=== PATIENT | female | born 1965 | race American Indian/Alaskan Native ===

== ENCOUNTER 2017-01-21 11:39 | Emergency (ER) | payer MEDICAID, OTHER, SELFPAY ==
--- NOTE | 2017-01-21 11:48 | EDM.PDOC ---
[id number] Complaint: R KNEE PAIN Time Seen by Provider: 01/21/17 12:20 Source of Information: Reports: Patient History Limitations: Reports: No Limitations - History of Present Illness INITIAL COMMENTS - FREE TEXT/NARRATIVE: 51-year-old female with chronic right knee swelling and pain is in today for pain control. She had surgery several months ago and has had persistent swelling since. She was seen at [facility] one month ago and he attempted to aspirate the knee but she walked out because it was painful. She is refusing any type of injection into the knee at this time. She has no new injury, she is having trouble ambulating. She says she "goes to bed crying"and "wakes up in the morning crying". No redness, warmth to the knee or fever. Severity: Moderate Worsens with: Reports: Other (Weight-bearing), Movement Knee Pain Score (Numeric/FACES): 10 - Related Data Allergies Allergy/AdvReac Type Severity Reaction Status Date / Time codeine phosphate Allergy Vomiting Verified 01/21/17 12:28 [From Tylenol-Codeine #3] naproxen Allergy Swelling Verified 01/21/17 12:28 tramadol Allergy Swelling Verified 01/21/17 12:28 trazodone Allergy Swelling Verified 01/21/17 12:28 Home Meds: Home Meds QUEtiapine Fumarate [Seroquel] 200 mg PO BEDTIME 05/12/13 [History] Acetaminophen [Tylenol] 650 mg PO Q4HR PRN 01/21/17 [History] buPROPion [Wellbutrin XL] 300 mg PO DAILY 01/21/17 [History] busPIRone [Buspar] 10 mg PO BID 01/21/17 [History] Social & Family History - Tobacco Use Smoking Status *Q: Unknown Ever Smoked Years of Tobacco use: 25 Used Tobacco, but Quit: No Second Hand Smoke Exposure: Yes - Alcohol Use Days Per Week of Alcohol Use: 0 - Recreational Drug Use Recreational Drug Use: No Drug Use in Last 12 Months: Yes Recreational Drug Type: Reports: Marijuana/Hashish Recreational Drug Use Frequency: Weekly Recreational Drug Last Use: t-2 Review of Systems - Review of Systems Review Of Systems: See Below Constitutional: Denies: Fever Respiratory: Denies: Shortness of Breath GI/Abdominal: Denies: Nausea, Vomiting Musculoskeletal: Reports: Back Pain, Other (Knee pain) Skin: Denies: Erythema Psychiatric: Reports: Depression, Mood Lability ED EXAM, GENERAL - Physical Exam Exam: See Below Exam Limited By: No Limitations General Appearance: Alert, Mild Distress (Appears uncomfortable, tearful) Respiratory/Chest: No Respiratory Distress Extremities: Other (Exam is otherwise limited to the lower extremities. She has well-healed surgical scars anteriorly both knees. She has diffuse swelling around the right knee which is tender to palpation, no erythema or warmth. Apparently it's been swollen for months.) Course - Vital Signs Last Recorded V/S: Last Vital Signs Temp 98.8 F 01/21/17 12:27 Pulse 93 01/21/17 12:27 Resp 16 01/21/17 12:27 BP 130/77 01/21/17 12:27 Pulse Ox 98 01/21/17 12:27 - Orders/Labs/Meds Meds: Medications Discontinued Medications Generic Name Dose Route Start Last Admin Trade Name Freq PRN Reason Stop Dose Admin Ketorolac Tromethamine 60 mg 01/21/17 13:36 01/21/17 13:50 Toradol IM 01/21/17 13:37 60 mg ONETIME ONE Administration - Re-Assessments/Exams Free Text/Narrative Re-Assessment/Exam: 01/21/17 13:56 Patient was given 60 mg of Toradol IM. She was also supplied with 10 [place] to use for extra pain control over the next 2 days and needs to call her primary provider or orthopedic surgeon early next week. 01/21/17 14:19 Records from [place] were obtained. Her clinical presentation physical exam looked the same back on November 25, 2 months ago as they do now. Interestingly her sedimentation rate and CRP were elevated at that time. Comments were made that she has had several no-shows to infectious disease and orthopedics over the last several months. It was impressed to her the importance of maintaining her appointment next week as no further pain medications will be given from the emergency room here. Departure - Departure Time of Disposition: 14:13 Disposition: Home, Self-Care 01 Condition: good Clinical Impression: Effusion of right knee joint, Chronic pain of right knee - Discharge Information Instructions: Knee Pain Referrals: PCP,None [Primary Care Provider] - Forms: ED Department Discharge Care Plan Goals: Continue using crutches and elevate knee when possible. Triston wrap and should help. Use stronger pain control as prescribed for the next 2-3 days, and call orthopedics next week to see if they can move up your appointment.
[2017-01-21 12:07] VITALS: BP 130/77
[2017-01-21] MEDS ORDERED: Ketorolac 60 MG/2 ML SDV IM ONE (13:36)
== END 2017-01-21 14:13 | disposition home or self-care (01) ==
LOC: JP.ED 11:39
DX: M25.461 Effusion, right knee (principal); M25.561 Pain in right knee; G89.29 Other chronic pain; Z79.899 Other long term (current) drug therapy; Z88.5 Allergy status to narcotic agent; Z88.8 Allergy status to other drugs, medicaments and biological substances
CPT/HCPCS: 96372; 99283; J1885

== ENCOUNTER 2017-05-07 13:56 | Emergency (ER) | payer MEDICAID, OTHER ==
[2017-05-07 14:17] VITALS: BP 133/36
--- NOTE | 2017-05-07 15:01 | EDM.PDOC ---
ED HPI GENERAL MEDICAL PROBLEM - General Chief Complaint: Lower Extremity Injury/Pain Stated Complaint: RT KNEE PAIN Time Seen by Provider: 05/07/17 14:40 Source of Information: Reports: Patient History Limitations: Reports: No Limitations - History of Present Illness INITIAL COMMENTS - FREE TEXT/NARRATIVE: 51-year-old female with chronic recurring significant inflammatory changes in her right knee has undergone several large surgeries and is being rechecked at [facility] on May 17. Over the past 2 days her knee has swollen again but has not reddened. She is planning on going to [place] tomorrow to discuss this with infectious disease and orthopedics and is looking for pain control. A [employer] search shows 3 small prescriptions over the past 4 months. She has no fevers or chills. Quality: Reports: Throbbing Severity: Moderate Worsens with: Reports: Other (Weightbearing), Movement - Related Data Allergies Allergy/AdvReac Type Severity Reaction Status Date / Time naproxen Allergy Swelling Verified 01/21/17 12:28 tramadol Allergy Swelling Verified 01/21/17 12:28 trazodone Allergy Swelling Verified 01/21/17 12:28 codeine phosphate AdvReac Vomiting Verified 01/22/17 09:07 [From Tylenol-Codeine #3] Home Meds: Home Meds QUEtiapine Fumarate [Seroquel] 200 mg PO BEDTIME 05/12/13 [History] Acetaminophen [Tylenol] 650 mg PO Q4HR PRN 01/21/17 [History] buPROPion [Wellbutrin XL] 300 mg PO DAILY 01/21/17 [History] busPIRone [Buspar] 10 mg PO BID 01/21/17 [History] Gabapentin [Neurontin] 05/07/17 [History] Rifampin [Rifampin] 05/07/17 [History] Past Medical History Musculoskeletal History: Reports: Osteoarthritis Neurological History: Reports: Migraines Psychiatric History: Reports: Anxiety, Depression Oncologic (Cancer) History: Reports: Other (See Below) Other Oncologic History: kindney - Past Surgical History HEENT Surgical History: Reports: Tonsillectomy GI Surgical History: Reports: Appendectomy, Cholecystectomy Female Surgical History: Reports: Hysterectomy Musculoskeletal Surgical History: Reports: Knee Replacement Social & Family History - Tobacco Use Smoking Status *Q: Current Every Day Smoker Years of Tobacco use: 40 Packs/Tins Daily: 0.5 Used Tobacco, but Quit: No Second Hand Smoke Exposure: Yes - Caffeine Use Caffeine Use: Reports: Coffee, Soda - Alcohol Use Days Per Week of Alcohol Use: 0 - Recreational Drug Use Recreational Drug Use: No Drug Use in Last 12 Months: Yes Recreational Drug Type: Reports: Marijuana/Hashish Recreational Drug Use Frequency: Weekly Recreational Drug Last Use: t-2 Review of Systems - Review of Systems Review Of Systems: See Below Constitutional: Denies: Fever Respiratory: Denies: Shortness of Breath Cardiovascular: Denies: Chest Pain GI/Abdominal: Denies: Nausea, Vomiting Skin: Denies: Erythema ED EXAM, GENERAL - Physical Exam Exam: See Below Exam Limited By: No Limitations General Appearance: Alert, No Apparent Distress Respiratory/Chest: No Respiratory Distress Extremities: Other (Exam is otherwise limited to the lower extremities. The right knee is diffusely swollen compared to the left but stable compared to last exam. There is no significant effusion palpable, no warmth or redness. The surgical scar is well-healed.) Course - Vital Signs Last Recorded V/S: Last Vital Signs Temp 98.6 F 05/07/17 14:32 Pulse 105 H 05/07/17 14:32 Resp 18 05/07/17 14:32 BP 133/36 L 05/07/17 14:32 Pulse Ox 93 L 05/07/17 14:32 - Re-Assessments/Exams Free Text/Narrative Re-Assessment/Exam: 05/07/17 14:59 I did agree to give her 10 Vicodin for pain control but she needs to contact her physicians in [place] tomorrow for further evaluation. Departure - Departure Time of Disposition: 15:08 Disposition: Home, Self-Care 01 Condition: Fair Clinical Impression: Pain in right knee Qualifiers: Chronicity: chronic Qualified Code(s): M25.561 - Pain in right knee - Discharge Information Instructions: Knee Pain Referrals: Ricky Acharya Sr, MD [Primary Care Provider] - Forms: ED Department Discharge Care Plan Goals: Continue your regular medications and add stronger pain medication if needed over the next 24-48 hours. It is very important to let your physicians know in [place] of your worsening symptoms.
== END 2017-05-07 15:08 | disposition home or self-care (01) ==
LOC: JP.ED 13:56
DX: M25.561 Pain in right knee (principal); F32.9 Major depressive disorder, single episode, unspecified; F17.210 Nicotine dependence, cigarettes, uncomplicated; Z90.49 Acquired absence of other specified parts of digestive tract; Z98.890 Other specified postprocedural states; Z96.659 Presence of unspecified artificial knee joint; Z90.710 Acquired absence of both cervix and uterus; Z79.899 Other long term (current) drug therapy; Z88.5 Allergy status to narcotic agent; Z88.8 Allergy status to other drugs, medicaments and biological substances
CPT/HCPCS: 99283

== ENCOUNTER 2019-02-03 18:10 | Emergency (ER) | payer MEDICAID ==
[2019-02-03 18:43] VITALS: BP 160/89
[2019-02-03] MEDS ORDERED: Ketorolac 60 MG/2 ML SDV IM ONE (18:57)
[2019-02-03] MEDS ORDERED: Acetaminophen/oxyCODONE 325-5 MG Tab PO ONE (19:00)
[2019-02-03] MEDS ORDERED: Baclofen 10 MG Tab PO ONE (19:01)
--- NOTE | 2019-02-03 19:05 | EDM.PDOC ---
ED HPI GENERAL MEDICAL PROBLEM - General Chief Complaint: Back Pain or Injury Stated Complaint: PAIN IN BACK GOING DOWN Time Seen by Provider: 02/03/19 19:02 Source of Information: Reports: Patient History Limitations: Reports: No Limitations - History of Present Illness INITIAL COMMENTS - FREE TEXT/NARRATIVE: PT FELL ABOUT 1 YEAR AGO AND SINCE THAT TIME SHE HAS HAD SEVERE PAIN IN HER LEFT LOWER BACK AND DOWN THE LEFT LEG. sHE HAS TINGLING IN HER FOOT. sHE DID HAVE XRAYS ABOUT 6 MONTHES AGO. sHE WAS TOLD AT THAT [facility] NOTHING WAS WRONG. Onset: Gradual, Other ( tHIS HAS BEEN GOING ON FOR ABOUT 1 YEAR. ) Duration: Hour(s): Location: Reports: Back, Lower Extremity, Left, Radiates to Associated Symptoms: Reports: Other (PT IS HAVING DIFFICULTY WALKING. ) Lower Back Pain Score (Numeric/FACES): 10 - Related Data Allergies Allergy/AdvReac Type Severity Reaction Status Date / Time naproxen Allergy Swelling Verified 01/21/17 12:28 tramadol Allergy Swelling Verified 01/21/17 12:28 trazodone Allergy Swelling Verified 01/21/17 12:28 codeine phosphate AdvReac Vomiting Verified 01/22/17 09:07 [From Tylenol-Codeine #3] Home Meds: Home Meds QUEtiapine Fumarate [Seroquel] 400 mg PO BEDTIME 05/12/13 [History] Acetaminophen [Tylenol] 650 mg PO Q4HR PRN 01/21/17 [History] buPROPion [Wellbutrin XL] 300 mg PO DAILY 01/21/17 [History] busPIRone [Buspar] 15 mg PO QID 01/21/17 [History] Gabapentin [Neurontin] 800 mg PO QID 05/07/17 [History] Past Medical History Musculoskeletal History: Reports: Osteoarthritis Neurological History: Reports: Migraines Psychiatric History: Reports: Anxiety, Depression Oncologic (Cancer) History: Reports: Other (See Below) Other Oncologic History: kindney - Infectious Disease History Infectious Disease History: Reports: Chicken Pox - Past Surgical History HEENT Surgical History: Reports: Tonsillectomy GI Surgical History: Reports: Appendectomy, Cholecystectomy Female Surgical History: Reports: Hysterectomy Musculoskeletal Surgical History: Reports: Knee Replacement Social & Family History - Tobacco Use Smoking Status *Q: Current Every Day Smoker Years of Tobacco use: 20 Packs/Tins Daily: 0.5 - Caffeine Use Caffeine Use: Reports: None - Recreational Drug Use Recreational Drug Use: No ED ROS GENERAL - Review of Systems Review Of Systems: See Below Constitutional: Reports: No Symptoms HEENT: Reports: No Symptoms Respiratory: Reports: No Symptoms Cardiovascular: Reports: No Symptoms Endocrine: Reports: No Symptoms GI/Abdominal: Reports: No Symptoms : Reports: No Symptoms Musculoskeletal: Reports: Other (pain in lower back on the left with pain radiating down the left leg. ) Skin: Reports: No Symptoms Neurological: Reports: Other (pt is crying with the severety of the pain. ) ED EXAM, UPPER BACK/NECK PAIN - Physical Exam Exam: See Below Text/Narrative:: pt arrived with severe low back pain radiating down ther left leg. She is having difficulty walking. She had a fall 1 year ago and the pain has been severe since that time. Exam Limited By: No Limitations General Appearance: Alert, Anxious, Other (pt is very upset and crying. ) Ears Exam: Normal TMs Nose Exam: Normal Inspection Throat/Mouth Exam: Normal Inspection Head Exam: Atraumatic Neck Exam: Non-Tender GI/Abdominal: Soft, Non-Tender Rectal (Female) Exam: Deferred Back Exam: Other (pt is tender over the left buttock. She has a positive straight leg rasing sign. ) Extremities: Normal Inspection Neurologic: Alert Psychiatric: Anxious, Other (pt is crying) Course - Vital Signs Last Recorded V/S: Last Vital Signs Temp 36.4 C 02/03/19 18:42 Pulse 108 H 02/03/19 18:42 Resp 16 02/03/19 18:42 BP 160/89 H 02/03/19 18:42 Pulse Ox 94 L 02/03/19 18:42 - Orders/Labs/Meds Meds: Medications Discontinued Medications Generic Name Dose Route Start Last Admin Trade Name Freq PRN Reason Stop Dose Admin Baclofen 10 mg 02/03/19 19:01 02/03/19 19:10 Lioresal PO 02/03/19 19:02 10 mg ONETIME ONE Administration Hydromorphone HCl 0.5 mg 02/03/19 19:29 02/03/19 19:40 Dilaudid IM 02/03/19 19:30 0.5 mg ONETIME ONE Administration Ketorolac Tromethamine 60 mg 02/03/19 18:57 02/03/19 19:10 Toradol IM 02/03/19 18:58 60 mg ONETIME ONE Administration Lorazepam 0.5 mg 02/03/19 19:30 02/03/19 19:40 Ativan PO 02/03/19 19:31 0.5 mg ONETIME ONE Administration Oxycodone/Acetaminophen 1 tab 02/03/19 19:00 02/03/19 19:10 Percocet 325-5 Mg PO 02/03/19 19:01 1 tab ONETIME ONE Administration - Re-Assessments/Exams Free Text/Narrative Re-Assessment/Exam: 02/03/19 20:17 pt was given baclofen 10 mg , dilaudid .5, percocet 5/325 and torodol 60mg im. She has had some relief. She will return for a Mri of the lumbar spine and see Dr Acharya in 2-3 days. Departure - Departure Time of Disposition: 20:23 Disposition: Home, Self-Care 01 Condition: Fair Clinical Impression: Lumbar disc disease, Radicular leg pain - Discharge Information Referrals: Ricky Acharya Sr, MD [Primary Care Provider] - Forms: ED Department Discharge Care Plan Goals: ice to the left buttock area, appt with Dr Acharya in the next 3-4 days., rtc for a MRI of the lumbar spine, torodol 10 mg qid, norco 5/325 q6h prn for severe pain, baclofen 10 mg bid to relax the muscles.
[2019-02-03] MEDS ORDERED: HYDROmorphone 0.5 MG/0.5 ML Syringe IM ONE (19:29)
[2019-02-03] MEDS ORDERED: LORazepam 0.5 MG Tab PO ONE (19:30)
== END 2019-02-03 20:46 | disposition home or self-care (01) ==
LOC: JP.ED 18:10
DX: M51.16 Intervertebral disc disorders with radiculopathy, lumbar region (principal); F41.9 Anxiety disorder, unspecified; F32.9 Major depressive disorder, single episode, unspecified; F17.210 Nicotine dependence, cigarettes, uncomplicated; Z88.5 Allergy status to narcotic agent; Z88.8 Allergy status to other drugs, medicaments and biological substances; Z79.899 Other long term (current) drug therapy
CPT/HCPCS: 96372; 99282; A9270; J1170; J1885

== ENCOUNTER 2019-08-02 10:42 | Emergency (ER) | payer MEDICAID ==
[2019-08-02 10:56] VITALS: BP 155/100; PULSE 134
--- NOTE | 2019-08-02 11:13 | EDM.PDOC ---
ED HPI GENERAL MEDICAL PROBLEM - General Chief Complaint: Wound Recheck Stated Complaint: REMOVE SURGICAL TAMI BACK Time Seen by Provider: 08/02/19 10:55 Source of Information: Reports: Patient History Limitations: Reports: No Limitations - History of Present Illness INITIAL COMMENTS - FREE TEXT/NARRATIVE: 54-year-old female in for staple removal of a surgical incision on her back. She had low back surgery 3 weeks ago, was scheduled to have tami removed last week but missed her appointment. No inflammation, she is in today because she finally could "get a ride". Associated Symptoms: Reports: No Other Symptoms Lower Back Pain Score (Numeric/FACES): 8 - Related Data Allergies Allergy/AdvReac Type Severity Reaction Status Date / Time naproxen Allergy Swelling Verified 01/21/17 12:28 tramadol Allergy Swelling Verified 01/21/17 12:28 trazodone Allergy Swelling Verified 01/21/17 12:28 codeine phosphate AdvReac Vomiting Verified 01/22/17 09:07 [From Tylenol-Codeine #3] Home Meds: Home Meds QUEtiapine Fumarate [Seroquel] 400 mg PO BEDTIME 05/12/13 [History] Acetaminophen [Tylenol] 650 mg PO Q4HR PRN 01/21/17 [History] buPROPion [Wellbutrin XL] 300 mg PO DAILY 01/21/17 [History] busPIRone [Buspar] 15 mg PO QID 01/21/17 [History] Gabapentin [Neurontin] 800 mg PO QID 05/07/17 [History] Past Medical History Musculoskeletal History: Reports: Osteoarthritis Neurological History: Reports: Migraines Psychiatric History: Reports: Anxiety, Depression Oncologic (Cancer) History: Reports: Other (See Below) Other Oncologic History: kindney - Infectious Disease History Infectious Disease History: Reports: Chicken Pox - Past Surgical History HEENT Surgical History: Reports: Tonsillectomy GI Surgical History: Reports: Appendectomy, Cholecystectomy Female Surgical History: Reports: Hysterectomy Musculoskeletal Surgical History: Reports: Knee Replacement Social & Family History - Tobacco Use Smoking Status *Q: Current Every Day Smoker Years of Tobacco use: 40 Packs/Tins Daily: 0.5 - Caffeine Use Caffeine Use: Reports: Coffee, Soda, Tea - Recreational Drug Use Recreational Drug Use: No ED ROS GENERAL - Review of Systems Review Of Systems: See Below Constitutional: Denies: Fever, Chills Respiratory: Denies: Shortness of Breath Skin: Reports: Other (Wound is healing, is itchy). Denies: Bruising ED EXAM, SKIN/RASH Exam: See Below Exam Limited By: No Limitations General Appearance: Alert, No Apparent Distress Respiratory/Chest: No Respiratory Distress Back Exam: Other (Incision was examined, tami were removed and the underlying wound healing is adequate. There is no drainage or erythema) Course - Vital Signs Last Recorded V/S: Last Vital Signs Temp 97.1 F 08/02/19 10:59 Pulse 134 H 08/02/19 10:59 Resp 16 08/02/19 10:59 BP 155/100 H 08/02/19 10:59 Pulse Ox 100 08/02/19 10:59 - Re-Assessments/Exams Free Text/Narrative Re-Assessment/Exam: 08/02/19 11:12 [place] were removed, and several Steri-Strips were placed across the incision for extra support. She should recheck with her surgeon as scheduled. Departure - Departure Time of Disposition: 11:18 Disposition: Home, Self-Care 01 Clinical Impression: Encounter for staple removal - Discharge Information Instructions: Wound Care, Adult Referrals: Ricky Acharya Sr, MD [Primary Care Provider] - Forms: ED Department Discharge Care Plan Goals: Increase activity as tolerated and follow the directions and recommendations of your surgeon. Sepsis Event Note - Evaluation Sepsis Screening Result: No Definite Risk - Focused Exam Vital Signs: Vital Signs Temp Pulse Resp BP Pulse Ox 08/02/19 10:59 97.1 F 134 H 16 155/100 H 100 08/02/19 10:55 97.1 F 134 H 16 155/100 H 100 Date Exam was Performed: 08/02/19 Time Exam was Performed: 15:01
== END 2019-08-02 11:19 | disposition home or self-care (01) ==
LOC: JP.ED 10:42
DX: Z48.02 Encounter for removal of sutures (principal); F41.9 Anxiety disorder, unspecified; F32.9 Major depressive disorder, single episode, unspecified; F17.210 Nicotine dependence, cigarettes, uncomplicated; Z88.5 Allergy status to narcotic agent; Z88.6 Allergy status to analgesic agent; Z88.8 Allergy status to other drugs, medicaments and biological substances
CPT/HCPCS: 99281